=== PATIENT | female | born 1965 | race Caucasian/White ===

== ENCOUNTER 2016-04-10 12:27 | Inpatient (IN) | payer OTHER ==
--- NOTE | ~2016-04-10 | EKG ---
PATIENT: FARZANA MONTERO UNIT #: [id number] Ventricular Rate: 64 BPM Atrial Rate: 64 BPM P-R Interval: 154 ms QRS Duration: 96 ms Q-T Interval: 472 ms QTC Calculation(Bezet): 486 ms P [place]: 68 degrees Calculated R [place]: 88 degrees Calculated T [place]: 52 degrees Diagnosis Line: Normal sinus rhythm Diagnosis Line: Nonspecific T wave abnormality Diagnosis Line: Prolonged QT Diagnosis Line: Abnormal ECG Diagnosis Line: When compared with ECG of 14-OCT-2015 10:50, Diagnosis Line: No significant change was found Diagnosis Line: Confirmed by CARROLL ELLINGTON MD ([id number]) on 04/11/2016 Diagnosis Line: 6:19:38 PM INTERPRETING MD: CHANDANA THOMSON
--- NOTE | ~2016-04-10 | BMI ---
[facility] Nutrition Therapy DATE: 04/11/16 Patient: FARZANA Hayes WINSTON Physician: NINOSKA Address: [address] [place] [address] Room/Bed: [address] [place] [address], Zip: [place] [address] Admit Date: 04/10/16 Date of : [birth year] Height: 5 8 Weight: 303 137.5 HIGH BMI NOTE: DX: 50 Y.O. FEMALE ADMITTED FOR COPD EXAC, RESP FAILURE ANTHROPOMETRICS: 5'8", WT: 303# (138 KG), BMI: 46.1 DIET: CC+HH INTERVENTION: 1. CC+ HH DIET RECOMMENDATIONS: 1. CONTINUE CURRENT DIET ORDER ABOVE TO PROMOTE GRADUAL WEIGHT LOSS TOWARDS HEALTHY BMI (19.0-25.0) OR +/-10%IBW RD WILL F/U PER PROTOCOL Respectfully, JOSHUA AVITIA MS, RD, LD Food and Nutritional Services [facility] cc: client file
--- NOTE | ~2016-04-10 | HP ---
Unit #: [id number] #: [id number] Patient: FARZANA MONTERO [id number] [address] [place], [place] [address] [id number] E MR#: [id number] NAME: FARZANA MONTERO ROOM: Age: 50 Sex: F Admission Date: 04/10/2016 : 1965 Attending Physician: Joanne Tim M.D. Primary Care Physician: No Primary Care Physician HISTORY AND PHYSICAL CHIEF COMPLAINT Shortness of breath and chest tightness and depression. HISTORY OF PRESENT ILLNESS A 50-year-old morbidly obese female with past medical history of depression, diabetes mellitus type 2, pulmonary hypertension, hyperlipidemia, tobacco abuse, COPD came with the above complaints. According to patient, she has not been sleeping for the last four days. She has quit taking her medications. She is having some hallucinations. She has been crying all night. She has started smoking again. She was at home. Her sister came to pick her up to go visit her mother who is in the jail and was found that patient was not doing well. Patient was brought to ER and is being admitted. She did have some shortness of breath and chest tightness. She does not complain of chest pain. She does not complain of any fever, chills, or rigors. No complaint of nausea and vomiting. No complaint of constipation or diarrhea, but she has not been eating well. She has loss of appetite. PAST MEDICAL HISTORY 1. COPD. 2. Chronic respiratory failure. 3. Obstructive sleep apnea. 4. Pulmonary hypertension. 5. Diabetes mellitus type 2. 6. Depression. MEDICATIONS Home medications are, which she has not been taking per patient: 1. Lasix 20 mg t.i.d. 2. Metformin 500 mg twice a day. 3. Singulair 10 mg daily. 4. Risperdal 1 mg q.a.m. 5. Celexa 20 mg daily. 6. Ventolin two puff inhaler p.r.n. 7. Spiriva two puff q.a.m. 8. Risperdal 2 mg nightly. SOCIAL HISTORY The patient lives at home by herself, although according to her some of her family moved in but they have left. She is a smoker. According to her, yesterday she smoked two packs and has been smoking one to two packs per day. She has been smoking for some time. No alcohol abuse. No drug abuse. Unit #: [id number] #: [id number] Patient: FARZANA MONTERO ALLERGIES No known drug allergies. PAST SURGICAL HISTORY Cholecystectomy. FAMILY HISTORY The patient does have significant family history of stroke in her parents. One of her sisters have coronary artery disease and multiple stents have been placed. REVIEW OF SYSTEMS As per history of presenting illness, the patient does have history of depression. Last time, [facility]. She is going through depression again, although she denies any suicidal ideation. According to her, she follows up with a psychiatrist on routine basis and next appointment is April 26, 2016. The rest is as per history of presenting illness. PHYSICAL EXAMINATION GENERAL: The patient is lying in bed. The patient is being evaluated in ER, bed 11. VITAL SIGNS: Blood pressure is 133/93, respiratory rate 24, pulse 77, temperature 98.3, oxygen saturation is 90%. HEENT: Head is normocephalic. Eye movements are normal. NECK: Supple. CHEST: Decreased air entry. Bilateral wheezing is heard. CARDIOVASCULAR: S1, S2 positive. Regular rhythm. ABDOMEN: Obese and soft. EXTREMITIES: Negative edema. CENTRAL NERVOUS SYSTEM: The patient is awake, alert. Oriented x3. No focal neurological deficit. DIAGNOSTIC STUDIES IMAGING: Chest x-ray was done which shows stable cardiomegaly with some mild central vascular congestion. No acute infiltrate. CTA of the chest was done which shows no acute pulmonary infiltrate or consolidation. No evidence of pulmonary embolism. No thoracic aortic aneurysm or dissection. Granulomatous calcifications within the chest is seen. CARDIOVASCULAR: EKG shows nonspecific T-wave abnormalities. ASSESSMENT The patient is being admitted to telemetry unit with: 1. Acute hypoxic respiratory failure. 2. Acute chronic obstructive pulmonary disease exacerbation. 3. Depression. 4. Diabetes mellitus type 2. 5. Hyperlipidemia. 6. Pulmonary hypertension. 7. Tobacco abuse. 8. Morbid obesity. PLAN Admit to telemetry unit. IV Solu-Medrol 80 mg q.8 is being started. Mini neb treatment with DuoNeb q.i.d. is being started. Dr. Jimenez will be Unit #: [id number] #: [id number] Patient: FARZANA MONTERO consulted. Lovenox 40 mg subcutaneous daily for deep venous thrombosis prophylaxis. Home medications have been reviewed and adjusted. Dr. Reagan will be consulted for depression. It seems like patient does not have any suicidal ideation. Plan of care has been discussed with patient at length. She does verbalize understanding. Please refer to progress note for further orders. Dictated by Rosalva Garcia TD: 04/10/2016 19:29 JOB #: [id number] HISTORY AND PHYSICAL X Stacey Foreman MD X HISTORY AND PHYSICAL
--- NOTE | ~2016-04-10 | CO ---
Unit #: [id number] #: [id number] Patient: NUBIA MONTERO [id number] [id number] [facility]. [place], [place] [address] [id number] I MR#: [id number] NAME: NUBIA MONTERO ROOM: 556 Age: 50 Sex: F Admission Date: 04/10/2016 : 1965 Attending Physician: Stacey Foreman M.D. Primary Care Physician: Primary Care Physician No Consultation Date: 04/11/2016 CONSULTATION REPORT REASON FOR CONSULTATION Depression, anxiety, and hallucination. HISTORY OF PRESENT ILLNESS Ms. Nubia Lubin is a 50-year-old white female, seen on 04/11/2016, in room 556, bed 1, at [facility]. The patient reports that yesterday she had hallucination, hearing voices, but reports that today they are better. The patient reports that she is suffering from depression and has a history of previous admission at [facility]. The patient was at [facility] from 10/16/2015 to 10/30/2015 and diagnosed with depressive disorder, on Celexa 20 mg daily and Risperdal 1 mg in the morning and 2 mg at bedtime for psychosis. The patient reports still having depression, but denies any hallucination. Denied any suicidal or homicidal ideation. Denied any psychotic symptom at this time. PAST PSYCHIATRIC HISTORY Remarkable for history of depression, anxiety, and hallucination, and inpatient treatment at [facility] in 2015. MEDICAL HISTORY History of COPD; chronic respiratory failure; obstructive sleep apnea; pulmonary hypertension; diabetes mellitus, type 2; depression; and obesity. MEDICATIONS Lasix 20 mg t.i.d., metformin 500 mg b.i.d., Singulair 10 mg daily, Risperdal 1 mg in the morning and 2 mg at bedtime, Celexa 20 mg daily, Ventolin inhaler, and Spiriva. FAMILY HISTORY AND SOCIAL HISTORY The patient lives by herself, has some family support. Denied any use of drugs or alcohol. No history of any abuse. REVIEW OF SYSTEMS Complete review of systems is remarkable for shortness of air, anxiety, and depression. MENTAL STATUS EXAMINATION General appearance; the patient moderately obese, dressed casually in hospital attire, in a propped up position, receiving oxygen through nasal cannula. Attention span and concentration, fair. Speech, regular rate and coherent. Oriented in time, place, and person. Mood and affect were sad, dysphoric, and anxious. Thought process was coherent and goal directed. Thought content; the patient denied any thoughts of harming Unit #: [id number] #: [id number] Patient: NUBIA MONTERO self or others or any hallucination, but hallucination yesterday. Recent and remote memory, fair. Language, able to name object and repeat phrases. Fund of knowledge, fair. Insight and judgment, fair to slightly impaired. DIAGNOSES Psychiatric: Major depressive disorder, recurrent, severe, F33.2, with psychotic feature and psychosis, not otherwise specified, F29.0. Secondary diagnosis: Deferred. Medical diagnosis: Please refer to H and P. Stressors: Psychosocial stressors. ASSESSMENT/PLAN 1. Supportive psychotherapy and psychoeducation provided to the patient. 2. Educated about benefits and side effects of medication and course and prognosis of illness. 3. Advised to continue with current combination of Celexa and Risperdal. The patient's psychotic symptom may be exacerbated by decrease in oxygen supply to brain due to respiratory failure. The patient is improving. We will continue to monitor. If needed, consider further adjustment of medication. Please feel free to call if any questions, telephone #[phone]. Dictated by... Rosalva Helton/paulette TD: 04/12/2016 17:32 JOB #: [id number] CONSULTATION REPORT X Samy Reagan MD X CONSULTATION REPORT
--- NOTE | ~2016-04-10 | DS ---
Unit #: [id number] #: [id number] Patient: FARZANA MONTERO [id number] [address] [address] [id number] I MR#: [id number] NAME: FARZANA MONTERO. ROOM: 556 Age: 50 Sex: F Admission Date: 04/10/2016 : 1965 Discharge Date: 04/13/2016 Attending Physician: Stacey Foreman M.D. Primary Care Physician: No Primary Care Physician DISCHARGE SUMMARY FINAL DIAGNOSES 1. Acute hypoxic respiratory failure which is improved. 2. Acute exacerbation of chronic obstructive pulmonary disease. 3. History of major depressive disorder, recurrent, severe with psychotic features and psychosis. 4. Obstructive sleep apnea. 5. Diabetes mellitus type 2. 6. Hyperlipidemia. 7. Pulmonary hypertension. 8. Tobacco abuse. 9. Morbid obesity. DISCHARGE MEDICATIONS 1. Prednisone tapering dose. 2. Singulair 10 mg daily. 3. Humibid LA 600 mg twice a day p.r.n. 4. Lasix 20 mg b.i.d. 5. Risperdal 2 mg at bedtime and 1 mg in the morning. 6. Metformin 500 mg b.i.d. 7. Celexa 20 mg daily. 8. Spiriva 18 mcg inhaler daily. 9. Nebulizer treatment at home q.i.d. CONSULTATIONS DURING HOSPITALIZATION 1. Dr. Robertson - Pulmonary Services. 2. Dr. Samy Reagan - Psych Services. LAB WORKUP ON DISCHARGE BMP shows sodium 138, potassium 5.3. We are going to repeat that before discharge. Chloride 95, BUN 21, creatinine 0.7. CBC shows WBC 10.9, hemoglobin 17.4, hematocrit 56.8 and platelet count 134. Urine culture showed colony count 30,000, mixed growth. Troponin less than 0.03. Urine drug screen was negative. BNP was 7. Chest x-ray showed stable cardiomegaly with some mild central vascular congestion. No acute infiltrate. Unit #: [id number] #: [id number] Patient: FARZANA MONTERO CTA of the chest was done on April 10 which showed no acute pulmonary infiltrate or consolidation. No evidence of pulmonary embolism. No thoracic aortic aneurysm or dissection. HOSPITAL COURSE Ms. Delacruz is a 50-year-old female who was admitted to the hospital on April 10, 2016, with a complaint of chest tightness and shortness of breath. The patient had also stopped taking her psych medications and she started having hallucinations. She has not slept when she came to hospital, had been crying all night. Her sister brought her to ER and was admitted for acute hypoxic respiratory failure, acute chronic obstructive pulmonary disease. The patient was admitted to telemetry unit. Dr. Robertson was consulted. The patient was started on IV Solu-Medrol, bronchodilator and oxygen. The patient is doing much better at this time. The patient's pulse ox on room air is 93%. She would like to go home. The patient was also seen by Dr. Samy Reagan from Psych services. The patient does have major depressive disorder. The patient has been advised to be compliant with her medications. She needs to continue Celexa and Risperdal. She does verbalize understanding. She had missed her appointment with Dr. Deshpande. Again, advised to be compliant with appointments too. VITAL SIGNS on discharge - blood pressure 140/82, respiratory rate 18, pulse is 80, temperature 98.2. HEAD is normocephalic. CHEST has fair air entry. CVS - S1, S2 positive. Regular rhythm. DISCHARGE INSTRUCTIONS 1. The patient is being discharged home in stable condition. 2. Medications as per Med Rec. 3. Follow up with primary care provider in one week. 4. Patient should be referred to obstructive sleep apnea workup because she will need sleep study and CPAP. I have advised patient to talk to her primary care provider. 5. Tobacco cessation counseling done. Dictated by... Stacey Foreman M.D. Bridgett TD: 04/16/2016 12:28 JOB #: [id number] DISCHARGE SUMMARY X Stacey Foreman MD X DISCHARGE SUMMARY
--- NOTE | ~2016-04-10 | CR72 ---
[facility] A Service of [facility] RADIOLOGY TEXT RESULTS PATIENT: FARZANA MONTERO LOCATION: [facility] : [birth year] UNIT #: [id number] AGE: [address]: Joanne Tim MD SEX: F ORDER DR: [id number] [facility] [address] [place], [place] [address] [id number] E MR#: [id number] Acc #: [id number] NAME: FARZANA MONTERO : 1965 SEX: F STUDY DATE/TIME: 04/10/2016 12:04 UNIT: [facility] ROOM: STUDY DESCRIPTION: CR Chest Single View Portable Attending Physician: Joanne Tim M.D. Ordering Physician: Joanne Tim M.D. Primary Care Physician: Primary Care Physician No MEDICAL IMAGING REPORT This report is preliminary unless electronic signature is present EXAM Portable chest, 04/10 INDICATION Shortness of air with flushing and nervousness for 1 day. History of hypertension and smoking. FINDINGS AP portable chest is compared with 10/14/2015. Cardiomegaly is stable. There is some mild central vascular congestion. Lungs are clear except for granulomatous calcifications. No pneumothorax. IMPRESSION Stable cardiomegaly with some mild central vascular congestion. No acute infiltrates. Dictated by... Anton Pandya Jr., M.D. THIS IS AN ELECTRONICALLY VERIFIED REPORT Anton Pandya Jr., M.D. at 04/10/2016 2:59 PM CHADWICK/arlene TD: 04/10/2016 14:43 JOB #: [id number] MEDICAL IMAGING REPORT COPY
--- NOTE | ~2016-04-10 | CT16 ---
[facility] A Service of [facility] RADIOLOGY TEXT RESULTS PATIENT: FARZANA MONTERO LOCATION: [facility] [id number] : [birth year] UNIT #: [id number] AGE: [address]: Stacey Foreman MD SEX: F ORDER DR: [id number] [facility] [address] [place], [place] [address] [id number] E MR#: [id number] Acc #: [id number] NAME: FARZANA MONTERO : 1965 SEX: F STUDY DATE/TIME: 04/10/2016 15:20 UNIT: [facility] ROOM: STUDY DESCRIPTION: CT Angio Chest for PE Attending Physician: Joanne Tim M.D. Ordering Physician: Joanne Tim M.D. Primary Care Physician: No Primary Care Physician MEDICAL IMAGING REPORT This report is preliminary unless electronic signature is present EXAM CT arteriogram of the chest vasculature performed on 04/10/2016 HISTORY 50-year-old female with shortness of breath for 1 week. TECHNIQUE Contiguous 2-mm axial images were obtained through the region of the chest after bolus IV contrast administration. Coronal and sagittal 3-D reconstructions were then performed at a separate workstation and submitted for evaluation. Lung windows were also submitted for evaluation. FINDINGS The lungs are symmetrically aerated with no pneumothorax or pleural effusion identified. No consolidation or infiltrate is identified. With bolus IV contrast administration no pulmonary arterial filling defects or vascular cutoff is appreciated. No thoracic aortic aneurysm or dissection is seen. Heart is not enlarged and no pericardial thickening or fluid is noted. Degenerative changes are seen in the thoracic spine. Granulomatous calcifications are noted in the mediastinum. IMPRESSION 1. No acute pulmonary infiltrate or consolidation. 2. No evidence of a pulmonary embolus. 3. No thoracic aortic aneurysm or dissection. 4. Granulomatous calcifications within the chest. Dictated by... Lopez Torres M.D. THIS IS AN ELECTRONICALLY VERIFIED REPORT Lopez Torres M.D. at 04/10/2016 8:44 PM RP/rachael [facility] A Service of [facility] RADIOLOGY TEXT RESULTS PATIENT: FARZANA MONTERO LOCATION: [facility] [id number] : [birth year] UNIT #: [id number] AGE: [address]: Stacey Foreman MD SEX: F ORDER DR: TD: 04/10/2016 17:56 JOB #: [id number] MEDICAL IMAGING REPORT COPY
--- NOTE | ~2016-04-10 | CO ---
Unit #: [id number] #: [id number] Patient: FARZANA MONTERO [id number] [address] [address] [id number] I MR#: [id number] NAME: FARZANA MONTERO. ROOM: 55 Age: 50 Sex: F Admission Date: 04/10/2016 : 1965 Attending Physician: Stacey Foreman M.D. Primary Care Physician: Sara Primary Care Physician Consultation Date: 04/11/2016 CONSULTATION REPORT REASON FOR CONSULT Hypoxia. HISTORY OF PRESENT ILLNESS This is a 50-year-old female with past medical history significant for morbid obesity, depression, schizophrenia and diabetes, pulmonary hypertension, COPD, who presented to the emergency room because her sister thought that she may have an anxiety attack. Sister stated that last summer patient was hearing abnormal voices and she had presented to the hospital and then she was transferred to [facility] psych problem. For the last few days patient was acting similarly and family was concerned that she is going through the same issues. Patient was noted to be more dyspneic also by her family and coughing but nothing productive. Patient denied any fever, chills or night sweats, no GI symptom like nausea, vomiting or diarrhea. Patient was tested for sleep apnea and she is positive but she still does not have CPAP. She is refusing to wear any facial mask but she is okay with the nasal probes. PAST MEDICAL HISTORY 1. COPD. 2. Obstructive sleep apnea. 3. Pulmonary hypertension. 4. Diabetes type 2. 5. Depression. 6. Morbid obesity. 7. Hallucination. SOCIAL HISTORY Patient lives at home by herself. She is a smoker of two packs per day. No history of alcohol or drug abuse. ALLERGIES No known drug allergies. PAST SURGICAL HISTORY Cholecystectomy. HOME MEDICATION Unit #: [id number] #: [id number] Patient: FARZANA MONTERO 1. Lasix. 2. Metformin. 3. Singulair. 4. Risperdal/risperidone. 5. Celexa. 6. Ventolin. 7. Spiriva. REVIEW OF SYSTEMS Twelve-point review of systems was obtained and was negative except for hallucination and shortness of breath. PHYSICAL EXAMINATION GENERAL: The patient is not in acute distress however she is emotional. VITAL SIGNS: Blood pressure 127/61. Respiratory rate 21. O2 saturation 96% on 4 L nasal cannula. HEENT: Normocephalic and atraumatic. EOMI. NECK: Supple. No JVD. No lymphadenopathy. CHEST: Decreased breath sounds bilaterally. No crackles or rhonchi. HEART: S1, S2. No murmur, gallops or rubs. ABDOMEN: Soft, nontender. Bowel sound is positive. No hepatosplenomegaly. EXTREMITIES: No edema or cyanosis. SKIN: No rashes. AUDIOPROSTHOLOGIST: Awake, alert, oriented x3. No focal motor/sensory deficits. DIAGNOSTIC STUDIES LABORATORY: Creatinine 0.8, calcium 9.0, alkaline phosphatase 104, white blood count 6.7. IMAGING: CTA was negative for pulmonary embolus or pneumonia ASSESSMENT 1. Acute hypoxic respiratory failure. 2. Acute exacerbation of chronic obstructive pulmonary disease. 3. Obstructive sleep apnea. 4. Pulmonary hypertension. 5. Erythrocytosis. PLAN 1. Patient's oxygen will be titrated down as tolerated but I suspect that patient will need oxygen at least at night. 2. Bronchodilator and IV steroids with mucolytics. 3. CT angiogram was negative for pulmonary embolus. 4. EKG and cardiac enzymes are negative for any cardiac etiology at this point. Patient had a stress test a year ago which was negative. 5. Physical therapy evaluation. Dictated by..Rosalva Dao TD: 04/11/2016 15:06 Unit #: [id number] #: [id number] Patient: FARZANA MONTERO JOB #: [id number] CONSULTATION REPORT X ADDI FOX MD CONSULTATION REPORT
[2016-04-10 12:27] LABS: POC - CKMB 1.5 ng/mL (0.0-7.9); POC - TROPONIN <0.05 ng/mL (<=0.05)
[~2016-04-10 12:27] MED LIST: ACETAMINOPHEN PO; ALBUTEROL MININEB NEB; ALBUTEROL17 G1 INH; ALBUTEROL17 GM INH; ALBUTEROL20 ml INH; ALDACTONE25 MG PO; ASPIRIN ENTERI325 M1 PO; BUMEX1 MG PO; DULERA 100 MCG/13 GM INH; FUROSEMIDE40 MG PO; GLUCOPHAGE500 M1 PO; GLYBURIDE PO; HYDROCHLOROTHIA25 MG PO; IBUPROFEN PO; K-DUR10 MEQ PO; LASIX20 MG PO; LEVAQUIN PO; LEVEMIR SUBQ; LEVEMIR100 UNITS/; LINZESS145 MCG PO; LISINOPRIL10 MG PO; METFORMIN HCL500 M1 PO; NICOTINE T1 PATCH .2 TOP; NO MEDICATIONS; NOVOLOG FL100 UNIT/1 SUBQ; PANTOPRAZOLE SO40 MG PO; PREDNISONE10 MG PO; PREDNISONE10 MG/DOSE PO; PROMETHAZINE PO; SIMVASTATIN20 MG PO; SINGULAIR PO; SPIRIVA18 MCG INH; STOMACH PILL PO; SYMBICORT INH; SYMBICORT80 INH; TOPAMAX50 MG PO; TYLENOL325 M1 PO; ULTRAM PO; UREA85 G1 TOP; VIAGRA PO; ZITHROMAX PO; ZYRTEC10 M2 PO
[2016-04-10 12:28] LABS: BASOPHIL% 0.6 % (0-2.5); EOSINOPHIL% 0.7 % (0.0-7.0); HEMATOCRIT 56.6 % (35.0-45.0); HEMOGLOBIN 17.4 gm/dL (12.0-16.0); LYMPHOCYTE# 1.6 X10e3 (1.0-3.5); LYMPHOCYTE% 24.4 % (17.0-45.0); MEAN CELL VOLUME 76.8 FL (83-96); MEAN CORPUSCULAR HEMOGLOBIN 23.7 PG (28-34); MEAN CORPUSCULAR HGB CONC 30.8 g/dL (30-36); MEAN PLATELET VOLUME 10.1 FL (6.5-11.5); MONOCYTE# 0.6 X10e3 (0-1.0); MONOCYTE% 8.7 % (3.0-12.0); NEUTROPHIL# 4.4 X10e3 (1.5-7.1); NEUTROPHIL% 65.6 % (40-75); PLATELET COUNT 131 X10e3 (140-420); RED BLOOD COUNT 7.37 X10e (3.90-5.30); RED CELL DISTRIBUTION WIDTH 17.7 % (11.0-15.5); WHITE BLOOD COUNT 6.7 X10e3 (4.0-10.5)
[2016-04-10 12:29] LABS: DIFF IND NO
[2016-04-10 12:37] LABS: INR 1.1; PROTHROMBIN TIME (PATIENT) 11.7 SECONDS (9.6-11.5)
[2016-04-10 13:03] LABS: ALBUMIN SERUM 3.8 g/dL (3.5-5.0); ALKALINE PHOSPHATASE 104 U/L (32-92); ALT (SGPT) 25 U/L (10-40); AST (SGOT) 29 U/L (10-42); BILIRUBIN, DIRECT 0.2 mg/dL (0.0-0.2); BILIRUBIN,INDIRECT 0.7 mg/dL (0.0-0.9); BILIRUBIN,TOTAL 0.9 mg/dL (0.2-2.0); BLOOD UREA NITROGEN 7 mg/dL (9-23); BUN/CREATININE RATIO 8.75; CARBON DIOXIDE 32 mmol/L (22-31); CHLORIDE 96 mmol/L (100-111); CREATININE SERUM 0.8 mg/dL (0.6-1.4); GLOM FILT RATE Estimated ABOVE60 mL/min (>60); GLUCOSE FASTING 108 mg/dL (70-110); POTASSIUM 3.6 mmol/L (3.5-5.1); PROTEIN TOTAL SERUM 7.9 g/dL (6.0-8.3); SODIUM 138 mmol/L (135-145)
[2016-04-10 14:58] LABS: URINE SOURCE CLEAN CATCH
[2016-04-10 15:03] LABS: URINE APPEARANCE CLOUDY; URINE BILIRUBIN NEG (NEG); URINE BLOOD NEG (NEG); URINE COLOR DK YELLOW; URINE GLUCOSE NEG (NEG); URINE KETONE NEG (NEG); URINE LEUKOCYTE ESTERASE TRACE (NEG); URINE NITRATE NEG (NEG); URINE PH 6.5 (5-8); URINE PROTEIN NEG (NEG); URINE SPECIFIC GRAVITY 1.015 (1.003-1.035)
[2016-04-10 15:05] LABS: CULTURE INDICATED? YES; URINE BACTERIA AUWI 1+ (NEGATIVE); URINE SQUAMOUS EPITHELIAL CELL MOD /[HPF]
[2016-04-10 15:23] LABS: AMPHETAMINE NEG (NEG); BARBITURATES NEG (NEG); BENZODIAZEPINES NEG (NEG); COCAINE NEG (NEG); MARIJUANA NEG (NEG); OPIATES NEG (NEG); TRICYCLIC ANTIDEPRESSANTS NEG (NEG); U METHADONE NEG (NEG)
[2016-04-10] MEDS ORDERED: RISPERIDONE1 MG PO ×3 (18:03→18:10)
[2016-04-10] MEDS ORDERED: CELEXA20 M1 PO (18:04)
[2016-04-10] MEDS ORDERED: SPIRIVA18 MCG INH (18:09)
[2016-04-10] MEDS ORDERED: ALBUTEROL17 GM INH (18:09)
[2016-04-10 20:49] LABS: %MB 2.4 % (0.0-4.0); MB 1.7 ng/ml
[2016-04-11 06:50] LABS: MB 1.8 ng/ml
[2016-04-12 06:36] LABS: HEMATOCRIT 56.7 % (35.0-45.0); HEMOGLOBIN 17.2 gm/dL (12.0-16.0); MEAN CELL VOLUME 77.9 FL (83-96); MEAN CORPUSCULAR HEMOGLOBIN 23.6 PG (28-34); MEAN CORPUSCULAR HGB CONC 30.3 g/dL (30-36); MEAN PLATELET VOLUME 10.2 FL (6.5-11.5); RED BLOOD COUNT 7.28 X10e (3.90-5.30); RED CELL DISTRIBUTION WIDTH 17.4 % (11.0-15.5)
[2016-04-12 06:38] LABS: WHITE BLOOD COUNT 13.3 X10e3 (4.0-10.5)
[2016-04-12 07:02] LABS: BLOOD UREA NITROGEN 16 mg/dL (9-23); BUN/CREATININE RATIO 26.66; CALCIUM SERUM 9.4 mg/dL (8.4-10.2); CARBON DIOXIDE 33 mmol/L (22-31); CHLORIDE 97 mmol/L (100-111); CREATININE SERUM 0.6 mg/dL (0.6-1.4); GLOM FILT RATE Estimated ABOVE60 mL/min (>60); GLUCOSE FASTING 123 mg/dL (70-110); SODIUM 138 mmol/L (135-145)
[2016-04-13 07:24] LABS: HEMATOCRIT 56.8 % (35.0-45.0); HEMOGLOBIN 17.4 gm/dL (12.0-16.0); MEAN CELL VOLUME 78.7 FL (83-96); MEAN CORPUSCULAR HEMOGLOBIN 24.1 PG (28-34); MEAN CORPUSCULAR HGB CONC 30.6 g/dL (30-36); MEAN PLATELET VOLUME 9.9 FL (6.5-11.5); RED BLOOD COUNT 7.22 X10e (3.90-5.30); RED CELL DISTRIBUTION WIDTH 17.7 % (11.0-15.5); WHITE BLOOD COUNT 10.9 X10e3 (4.0-10.5)
[2016-04-13 08:09] LABS: BLOOD UREA NITROGEN 21 mg/dL (9-23); CALCIUM SERUM 9.6 mg/dL (8.4-10.2); CARBON DIOXIDE 33 mmol/L (22-31); CHLORIDE 95 mmol/L (100-111); CREATININE SERUM 0.7 mg/dL (0.6-1.4); GLOM FILT RATE Estimated ABOVE60 mL/min (>60); GLUCOSE FASTING 131 mg/dL (70-110); POTASSIUM 5.3 mmol/L (3.5-5.1); SODIUM 138 mmol/L (135-145)
[2016-04-13] MEDS ORDERED: PREDNISONE10 MG/DOSE PO (18:15)
[2016-04-13] MEDS ORDERED: GUAIFENESIN600 MG PO (18:15)
== END 2016-04-13 21:00 | disposition home or self-care (01) | DRG 189 ==
LOC: CED 12:27 → CEDOF 18:30 → C5B 04-11 00:09
PROVIDERS: Emergency Medicine; Hospitalist; Physician Assistant Medical
PROC: B32TYZZ Computerized Tomography (CT Scan) of Left Pulmonary Artery using Other Contrast (ICD-10-PCS; principal; 2016-04-10)
PROC: B32SYZZ Computerized Tomography (CT Scan) of Right Pulmonary Artery using Other Contrast (ICD-10-PCS; 2016-04-10)
DX: J96.21 Acute and chronic respiratory failure with hypoxia (principal); I27.2 Other secondary pulmonary hypertension; F33.3 Major depressive disorder, recurrent, severe with psychotic symptoms; J44.1 Chronic obstructive pulmonary disease with (acute) exacerbation; E66.01 Morbid (severe) obesity due to excess calories; D75.1 Secondary polycythemia; G47.33 Obstructive sleep apnea (adult) (pediatric); E11.9 Type 2 diabetes mellitus without complications; E78.5 Hyperlipidemia, unspecified; F17.210 Nicotine dependence, cigarettes, uncomplicated; Z79.84 Long term (current) use of oral hypoglycemic drugs; Z82.3 Family history of stroke; Z82.49 Family history of ischemic heart disease and other diseases of the circulatory system; Z90.49 Acquired absence of other specified parts of digestive tract
CPT/HCPCS: 36415; 71010; 71275; 80048; 80076; 80307; 81003; 82550; 82553; 82947; 83880; 84132; 84484; 84703; 85025; 85027; 85379; 85610; 87086; 93005; 94640; 94664; 94760; 96374; 97162; 99285; J1650; J1815; J2930; Q9967